=== PATIENT | male | born 1965 | race Caucasian/White ===

== ENCOUNTER 2024-07-08 08:55 | Outpatient (REF) | payer BC, SELFPAY ==
[2024-07-08 09:31] LABS: MANUAL DIFF FLAG NO
[2024-07-08 09:59] LABS: Basophils Percent Auto 0.4 % (0-2); Eosinophils Absolute Auto 0.2 X10*3/uL (0.0-0.4); Eosinophils Percent Auto 2.3 % (0-4); Hematocrit 42.4 % (42.0-52.0); Hemoglobin 14.6 g/dl (14.0-18.0); Imm Gran Abs Auto 0.03 X10*3/uL (0.00-0.03); Imm Gran Pct Auto 0.4 % (0.0-0.4); Lymphocytes Absolute Auto 2.6 X10*3/uL (1.2-4.9); Lymphocytes Percent Auto 36.7 % (20-40); Mean Corpuscular HGB Conc 34.4 g/dl (31.0-36.0); Mean Corpuscular Hemoglobin 31.8 pg (27.0-33.0); Mean Corpuscular Volume 92.4 fL (80.0-98.0); Mean Platelet Volume 8.7 fL (9.4-12.4); Monocytes Absolute Auto 0.6 X10*3/uL (0.1-1.2); Monocytes Percent Auto 8.8 % (2-11); Neutrophils Absolute Auto 3.6 x10*3/uL (2.0-8.3); Neutrophils Percent Auto 51.4 % (45-73); Platelet Count 271 X10*3/uL (160-400); Red Blood Count 4.59 X10*6/uL (4.60-5.80); Red Cell Distribution Width 11.9 % (11.0-16.0); White Blood Count 7.1 X10*3/uL (4.8-10.8)
[2024-07-08 10:05] LABS: Appearance Urine Clear; Color Urine Yellow; Glucose Urine UA Negative (Negative); Leukocyte Esterase Urine Small (1+) (Negative); Nitrite Urine Negative (Negative); Specific Gravity - Urine 1.015 (1.005-1.025); UMIC TRIGGER UACC YES; Urine Blood Large (3+) (Negative); Urine Ketones Negative (Negative); Urine Protein Negative (Neg-Trace)
[2024-07-08 10:18] LABS: Bacteria Urine None Seen (None Seen); Hyaline Casts Urine 0-2 /LPF (0-2); RBC Urine >20 /HPF (0-2); Squamous Epithelial Cell Urine 0-2 /HPF (0-2); UACC Culture Trigger YES; WBC Urine 0-5 /HPF (0-5)
[2024-07-08 10:25] LABS: Estimated Average Glucose 108 mg/dL; Hemoglobin A1C 131.1097 umol/L; Hemoglobin A1c % 5.4 % (<6.0); Total Hemoglobin (HGBA1C) 3657.7992 umol/L
[2024-07-08 10:56] LABS: Alanine Aminotransferase 28 U/L (0-40); Albumin Level 4.6 g/dL (3.5-5.0); Alkaline Phosphatase 78 U/L (39-117); Anion Gap 11 (12-20); Aspartate Amino Transferase 23 U/L (5-37); Bilirubin Total 0.9 mg/dL (0.0-1.0); Blood Urea Nitrogen 15 mg/dL (9-16); Calcium 9.6 mg/dL (8.4-10.2); Carbon Dioxide 28 mmol/L (22-29); Chloride 106 mmol/L (96-108); Cholesterol 135 mg/dL (<200); Estimated Glomerular Filt Rate > 60; Glucose Random 114 mg/dL (60-115); HDL Cholesterol 36 mg/dL (>40); LDL Cholesterol Calculated 85 mg/dL (<100); Potassium 4.3 mmol/L (3.3-5.1); Sodium 141 mmol/L (135-145); Total Protein 7.2 g/dL (6.5-8.0); Triglycerides 74 mg/dL (<150)
[2024-07-08 10:59] LABS: PSA,Total (Free>4and<10) 3.01 ng/mL (0.00-4.00)
[2024-07-08 11:15] LABS: Vitamin D 25-OH Total 48.5 ng/mL (>30)
[2024-07-08 13:01] LABS: Reflex LDLD? No
== END 2024-07-08 08:56 | disposition home or self-care (01) ==
LOC: HO.LAB 08:55
PROVIDERS: PCP Family Medicine; Visit Provider Family Medicine
DX: Z12.5 Encounter for screening for malignant neoplasm of prostate (principal); Z13.1 Encounter for screening for diabetes mellitus; Z00.00 Encounter for general adult medical examination without abnormal findings; R82.90 Unspecified abnormal findings in urine
CPT/HCPCS: 36415; 80053; 80061; 81001; 81003; 82306; 83036; 84153; 84443; 85025; 87086

== ENCOUNTER 2025-08-05 10:25 | Outpatient (REF) | payer BC, SELFPAY ==
--- OUTSIDE RECORDS SUMMARY | 2025-07-31 07:30 | XMS_ITS | Encounter Summary ---
Author Organization [facility] Address [address] [place] [address] Care Team Providers Care Soft Metals Engraver Hand Name Role Phone Kei Hinton MD Primary Care Provider [phone] Reason for Visit * Reason Comments Eye Problem Encounter Details Date Type Department Care Team (Late st Contact Info) Description 07/31/2025 7:30 AM EDT Office Visit [facility] Ophthalmology [address] [place] [phone] Skyler Lopez MD [address] [place] [phone] Presence of intraocular lens Social History Tobacco Use Types Packs/Day Years Used Date Smoking Tobacco: Never Assessed Sex and Gender Information Value Date Recorded Sex Assigned at Male 08/03/2025 9:05 AM EDT Legal Sex Male 4:18 PM EDT Gender Identity Male 08/03/2025 9:05 AM EDT Sexual Orientation Not on file documented as of this encounter Progress Notes * Skyler Lopez MD - 07/31/2025 7:30 AM EDT 07/31/2025 HISTORY: 1 Day post cataract surgery right eye Joshua Jordan Tarun did well overnight. Pain: No Nausea: No Pt states OD was itchy and wiped OD Medications: Antibotics: OFLOXACIN 0.3 % OP SOLN (OCUFLOX) QID x three days before surgery NSAID: FLURBIPROFEN SODIUM 0.03 % OP SOLN (OCUFEN) QID for three days before surgery Ointment: Erythromycin ophthalmic ointment at bedtime x three days before surgery Lids Scrub: Ocusoft x 1 weeks before surgery Exam: IOP: right eye 27 A/C: Cell Trace Cornea: Edema Clear Lens: PCIOL in the bag Fundus: Attached 360 Assessment: Day 1 Status-post cataract extraction right eye. Patient is doing well The pt received detailed instructions regarding postoperative care. The postop instruction sheet was given to the patient and explained which details the timing and frequency of the drops, how they are to be taken, and other information including postop activity limitations and precautions. The wayto blot the eye lightly was demonstrated. Items emphasized include wearing the shield hs x 2 weeks,not rubbing the eye, not lifting/straining which can pop the new lens out of position requiring another surgery to reposition it, RD/infection symptoms. Questions were answered. The pt was encouraged to call immediately, any time, with questions or concerns, including drops. Driving precautions were reviewed. Plan: Medications- Ofloxacin QID and Prednisolone acetate 1% QID, Flurbiprofen QID Cx 1 mo pov Call PRN with problems Call to set up appt with Dr Pro 30+ days documented in this encounter Plan of Treatment Not on file documented as of this encounter Visit Diagnoses Diagnosis Presence of intraocular lens Lens replaced by other means documented in this encounter Care Teams Soft Metals Engraver Hand Relationship Specialty Start Date End Date Kei Hinton MD [facility] [address] [place] [phone] PCP - General Family Medicine 07/31/25 documented as of this encounter
[2025-08-05 10:55] LABS: MANUAL DIFF FLAG NO
[2025-08-05 11:50] LABS: Hematocrit 44.4 % (42.0-52.0); Hemoglobin 15.1 g/dl (14.0-18.0); Imm Gran Abs Auto 0.01 X10*3/uL (0.00-0.03); Imm Gran Pct Auto 0.1 % (0.0-0.4); Lymphocytes Absolute Auto 2.5 X10*3/uL (1.2-4.9); Mean Corpuscular HGB Conc 34.0 g/dl (31.0-36.0); Mean Corpuscular Hemoglobin 31.4 pg (27.0-33.0); Mean Corpuscular Volume 92.3 fL (80.0-98.0); NRBC Abs Auto 0.000 X10*3/uL (0.0-0.012); NRBC Pct Auto 0.0 /100WBC (0.0-0.2); Platelet Count 300 X10*3/uL (160-400); Red Blood Count 4.81 X10*6/uL (4.60-5.80); White Blood Count 6.7 X10*3/uL (4.8-10.8)
[2025-08-05 12:23] LABS: Appearance Urine Clear; Glucose Urine UA Negative (Negative); PH 6.5 (5.0-9.0); Specific Gravity - Urine 1.015 (1.005-1.025)
[2025-08-05 12:30] LABS: Alanine Aminotransferase 34 U/L (0-40); Albumin Level 4.9 g/dL (3.5-5.0); Alkaline Phosphatase 84 U/L (39-117); Anion Gap 12 (12-20); Aspartate Amino Transferase 29 U/L (5-37); Blood Urea Nitrogen 16 mg/dL (9-16); Calcium 9.3 mg/dL (8.4-10.2); Carbon Dioxide 27 mmol/L (22-29); Chloride 104 mmol/L (96-108); Cholesterol 199 mg/dL (<200); Estimated Glomerular Filt Rate > 60; HDL Cholesterol 37 mg/dL (>40); Potassium 4.1 mmol/L (3.3-5.1); Sodium 139 mmol/L (135-145); Total Protein 7.3 g/dL (6.5-8.0); Triglycerides 80 mg/dL (<150)
[2025-08-05 12:43] LABS: PSA,Total (Free>4and<10) 2.96 ng/mL (0.00-4.00)
[2025-08-05 12:55] LABS: Thyroid Stimulating Hormone 0.99 uIU/mL (0.32-4.0)
--- OUTSIDE RECORDS SUMMARY | 2025-08-05 12:56 | XMS_ITS | Encounter Summary ---
Author Organization [facility] Address [address] [place] [address] Care Team Providers Care Claims Examiner Name Role Phone Kei Hinton MD Primary Care Provider [phone] Reason for Visit * Reason Comments Appointment Cataract Surgery Encounter Details Date Type Department Care Team (Late st Contact Info) Description 06/10/2025 Telephone [facility]. Ophthalmology [address] [place] [phone] Skyler Lopez MD [address] [place] [phone] Appointment ; Cataract Surgery Social History Tobacco Use Types Packs/Day Years Used Date Smoking Tobacco: Never Assessed Sex and Gender Information Value Date Recorded Sex Assigned at Male 08/03/2025 9:05 AM EDT Legal Sex Male 4:18 PM EDT Gender Identity Male 08/03/2025 9:05 AM EDT Sexual Orientation Not on file documented as of this encounter Miscellaneous Notes * Telephone Encounter - Colt Tapia - 06/10/2025 3:12 PM EDT He is all set with a date. Fany Tapia COA * Telephone Encounter - Roni Myers - 06/10/2025 12:46 PM EDT The patient want to schedule CAT surgery with Dr Lopez please call back to [phone] to assists. [facility] documented in this encounter Plan of Treatment Not on file documented as of this encounter Visit Diagnoses Not on filedocumented in this encounter Care Teams Claims Examiner Relationship Specialty Start Date End Date Kei Hinton MD [facility] [address] [place] [phone] PCP - General Family Medicine 07/31/25 documented as of this encounter
--- OUTSIDE RECORDS SUMMARY | 2025-08-05 12:56 | XMS_ITS | Encounter Summary ---
Author Organization [facility] Address [address] [place] [address] Care Team Providers Care Technical Education Teacher Name Role Phone Kei Hinton MD Primary Care Provider [phone] Encounter Details Date Type Department Care Team (Late st Contact Info) Description 07/11/2024 Orders Only [facility] Xray [address] [place] [address] Darin Tee MD [address] [place] [address] Social History Tobacco Use Types Packs/Day Years Used Date Smoking Tobacco: Former Smokeless Tobacco: Never Comments::QUIT 1989 Alcohol Use Standard Drinks/Week Comments Yes 0 (1 standard drink = 0.6 oz pur e alcohol) [facility] Utilities Answer Date Recorded In the past 12 months has th e electric, gas, oil, or water company threatened to shut off services in your home? No 07/10/2024 Hunger Vital Sign Answer Date Recorded Within the past 12 months, y ou worried that your food would run out before you got the money to buy more. Never true 07/10/20 24 Within the past 12 months, t he food you bought just didn't last and you didn't have money to get more. Never true 07/10/2024 Transportation Answer Date Recorded In the past 12 months, has l ack of reliable transportation kept you from medical appointments, meetings, work or from getting things needed for daily living? No 07/10/2024 Housing Answer Date Recorded Housing Risk Low 2 07/10/2024 Housing Risk Medium Not on file 07/10/2024 Housing Risk High Not on file 07/10/2024 What is your living situation today? [facility]STEAD[facility] 07/10/2024 Sex and Gender Information Value Date Recorded Sex Assigned at Male 11/02/2023 1:08 PM EST Legal Sex Male 5:30 AM EDT Gender Identity Male 11/02/2023 1:08 PM EST Sexual Orientation Straight 11/02/2023 1: 08 PM EST documented as of this encounter Plan of Treatment Upcoming Encounters Date Type Department Care Team (Late st Contact Info) Description 08/07/2025 9:30 AM EDT Office Visit [facility] 100 [facility] Department 100 [facility] [address] [place] [phone] Kei Hinton MD [address] [place] [address] 05/03/2026 4:00 PM EDT Follow-Up [facility] Medical [facility] Urology [address] [place] [phone] Enrrique Cuevas MD [address] [place] [phone] documented as of this encounter Visit Diagnoses Not on filedocumented in this encounter Care Teams Technical Education Teacher Relationship Specialty Start Date End Date Kei Hinton MD [address] [place] [phone] PCP - General Family Medicine 07/31/23 documented as of this encounter
--- OUTSIDE RECORDS SUMMARY | 2025-08-05 12:56 | XMS_ITS | Encounter Summary ---
Author Organization [facility] Address [address] [place] [address] Care Team Providers Care Business Practices Supervisor Name Role Phone Kei Hinton MD Primary Care Provider [phone] Encounter Details Date Type Department Care Team (Late st Contact Info) Description 04/02/2025 Orders Only [facility] Interventional Radiology [address] [place], [place] [phone] Lamont Andrews DO 55 [facility] Internal Medicine [place], [place] [phone] Social History Tobacco Use Types Packs/Day Years Used Date Smoking Tobacco: Former Smokeless Tobacco: Never Comments::QUIT 1989 Alcohol Use Standard Drinks/Week Comments Yes 0 (1 standard drink = 0.6 oz pur e alcohol) [facility] Utilities Answer Date Recorded In the past 12 months has th e electric, gas, oil, or water company threatened to shut off services in your home? No 02/01/2025 Hunger Vital Sign Answer Date Recorded Within the past 12 months, y ou worried that your food would run out before you got the money to buy more. Never true 02/02/20 25 Within the past 12 months, t he food you bought just didn't last and you didn't have money to get more. Never true 02/01/2025 Transportation Answer Date Recorded In the past 12 months, has l ack of reliable transportation kept you from medical appointments, meetings, work or from getting things needed for daily living? No 02/01/2025 Housing Answer Date Recorded Housing Risk Low 2 02/01/2025 Housing Risk Medium Not on file 02/01/2025 Housing Risk High Not on file 02/01/2025 What is your living situation today? LSSTEADY 02/01/2025 Sex and Gender Information Value Date Recorded Sex Assigned at Male 11/02/2023 1:08 PM EST Legal Sex Male 5:30 AM EDT Gender Identity Male 11/02/2023 1:08 PM EST Sexual Orientation Straight 11/02/2023 1: 08 PM EST documented as of this encounter Plan of Treatment Upcoming Encounters Date Type Department Care Team (Late st Contact Info) Description 08/07/2025 9:30 AM EDT Office Visit [facility] 100 [facility] Department [address] [place] [phone] Kei Hinton MD [address] [place] [address] 05/03/2026 4:00 PM EDT Follow-Up [facility] Medical [facility] Urology [address] [place] [phone] Enrrique Cuevas MD [address] [place] [phone] documented as of this encounter Visit Diagnoses Not on filedocumented in this encounter Care Teams Business Practices Supervisor Relationship Specialty Start Date End Date Kei Hinton MD [address] [place] [phone] PCP - General Family Medicine 07/31/23 documented as of this encounter
--- OUTSIDE RECORDS SUMMARY | 2025-08-05 12:56 | XMS_ITS | Clinical Summary ---
Author Organization [facility] Address [address] [place] [address] Care Team Providers Care Vegetable Washing Machine Operator Name Role Phone Kei Hinton MD Primary Care Provider [phone] Allergies Active Allergy Reactions Criticality Noted Date Comments No Known Allergies Unknown 06/28/2023 Medications atorvastatin (LIPITOR) 40 mg tablet Take 1 tablet (40 mg total) by mouth at bed time. 90 tablet 3 09/20/2023 Active tamsulosin (FLOMAX) 0.4 mg capsule Take 1 capsule (0.4 mg total) by mouth once a day. 90 capsule 1 08/08/2024 Active Active Problems Problem Noted Date Diagnosed Date Screening due 02/06/2025 Recurrent pain of right knee 02/06/2025 History of hematuria 08/05/2024 Assessment & Plan (08/05/2024 2:02 PM EDT): Repeat urine test was normal without hematuria and CT urogram were normal. Urology referral pending. Hematuria 07/10/2024 BPH (benign prostatic hyperplasia) 07/30/2023 Assessment & Plan (08/05/2024 2:02 PM EDT): Well-controlled on tamsulosin. Overweight (BMI 25.0-29.9) 07/30/2023 Assessment & Plan (08/05/2024 2:02 PM EDT): Weight loss advised. 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 Patient will continue current regiment. Resolved Problems Problem Noted Date Diagnosed Date Resolved Date Closed chip fracture of triq uetral bone of right wrist 07/30/2023 07/30/2023 Abnormal LFTs 07/30/2023 07/30/2023 Immunizations Immunization Administration Dates Next Due Covid-19 Monovalent Vaccine, Moderna, mRNA, PF 0 02/14/2021,01/17/2021 Diphtheria and Tetanus Toxoi ds, Adsorbed for Pediatric Use 11/12/1991 Influenza, Injectable, Madin Bambi Canine Kidney, Preservative Free, Quadrivalent 08/29/2023 Measles Virus Vaccine 08/09/1990 Tetanus Toxoid, Reduced Diph theria Toxoid, and Acellular Pertussis Vaccine, Adsorbed 07/31/2023 Varicella Virus Vaccine 09/12/2023,08/13/2023 Social History Tobacco Use Types Packs/Day Years Used Date Smoking Tobacco: Former Smokeless Tobacco: Never Tobacco Cessation:Counseling Given: Not Answered Comments::QUIT 1989 Alcohol Use Standard Drinks/Week Comments Yes 0 (1 standard drink = 0.6 oz pur e alcohol) [facility] Utilities Answer Date Recorded In the past 12 months has e electric, gas, oil, or water PAK threatened to shut off services in your [...] Orientation Straight 11/02/2023 1: 08 PM EST Last Filed Vital Signs Vital Sign Reading Time Taken Comments Blood Pressure 122/73 02/06/2025 2:04 PM EDT Pulse 61 02/06/2025 2:04 PM EDT Temperature 36.3 C (97.3 F) 02/06/2025 2:04 PM EDT Respiratory Rate - - Oxygen Saturation 96% 02/06/2025 2:04 PM EDT Inhaled Oxygen Concentration - - Weight 88.9 kg (196 lb) 02/06/2025 2:04 PM EDT Height 177.8 cm (5' 10 ) 02/06/2025 2:04 PM EDT Body Mass Index 28.12 02/06/2025 2:04 PM EDT Plan of Treatment Upcoming Encounters Date Type Department Care Team (Late st Contact Info) Description 08/07/2025 9:30 AM EDT Office Visit [address] Department 100 [facility] [address] [place] [phone] Kei Hinton MD [address] [place] [phone] 05/03/2026 4:00 PM EDT Follow-Up [facility] Urology [address] [place] [phone] Enrrique Cuevas MD [address] [place] [phone] Health Maintenance Due Date Last Done Comments FOBT / Fit Test 1965 HIV Screening 1965 Hepatitis C Screening [address] Lung Cancer Screening (Baseline) 2014 Pneumococcal Vaccine: 50+ Years (1 of 1 - PCV) 2014 Zoster Vaccines (1 of 2) 11/07/2023 09/12/2023, 11/0 03/2023 COVID-19 Vaccine (3 - season) 2025 02/14/2021, 01/17/2021 Influenza Vaccine (#1) 2025 08/29/2023 Social Drivers of Health Annual Screening 02/01/2026 02/01/2025 Diabetes Screening 07/03/2026 07/03/2023, 0 07/03/2023, 07/03/2023, Additional history exists Depression Screening and Follow-Up 08/05/2026 08/05/2025 Cologuard 11/07/2027 11/07/2024, 11/07/2024 Colon Cancer Screening 03/06/2028 Colonoscopy 03/06/2028 03/06/2018, 03/06/2018 DTaP,Tdap,and Td Vaccines (3 - Td or Tdap) 07/31/2033 07/31/2023, 11/12/1991 RSV Vaccine (60+ years old and patients) (1 - 1-dose 75+ series) 2039 Alcohol/Substance Use Screening Completed 08/05/2025 Hepatitis B Vaccines Aged Out No long er eligible based on patient's age to complete this topic Procedures * Due to [place] [employer] law, this organization might not be sharing negative HIV tests. Procedure Name Priority Date/Time Associated Diagnosis Comments HEMOGLOBIN A1C Routine 07/03/2023 8:37 AM EDT HM COLONOSCOPY Routine 03/06/2018 from Last 3 Months or Most Recently Relevant to Health Maintenance Results * Due to [place] [employer] law, this organization might not be sharing negative HIV tests. * (ABNORMAL) Hemoglobin A1c (07/03/2023 8:37 AM EDT) Hemoglobin A1c 5.8(H) 4.0 - 5.7 % CONVERSION DATA LAB Comment: Hemoglobin A1c Interpretation Normal Range: less than 5.7% Diabetes: Greater than of equal to 6.5% PreDiabetic: 5.7 to 6.4% Estimated Average Glucose 120 mg/dL CONVERSION DATA LAB Comment: COMMENT: HgbA1c testing is not valid for patients with: 1) Decreased red blood cell life span (hemoglobinopathies, hemolytic anemia). 2) Significant blood loss. 3) Anemia secondary to nutrional deficiency. 4) Blood transfusions within the past 2-3 months. An alternate test method should be used for these patients. 07/03/2023 8:37 AM EDT us Kei Hinton MD LAB BLOOD ORDERABLES Final Re sult CONVERSION DATA LAB * Colonoscopy (03/06/2018) 03/06/2018 us Unknown Provider HEALTH MAINTENANCE Final Res ult from Last 3 Months or Most Recently Relevant to Health Maintenance Insurance BCBS OUT OF STATE PPO Advance Directives Documents on File Type Date Recorded Patient Manager Health Expl anation Health Care Proxy 08/02/2023 9:04 PM 06-2 Health Care Proxy 07/31/2023 10:31 AM Health Care Proxy 06/22/2022 Health Care Proxy 06/22/2022 Health Care Proxy 06/22/2022 Advance Directive 06/19/2022 5:29 PM Care Teams Vegetable Washing Machine Operator Relationship Specialty Start Date End Date Kei Hinton MD [address] [place] [phone] PCP - General Family Medicine 07/31/23
--- OUTSIDE RECORDS SUMMARY | 2025-08-05 12:56 | XMS_ITS | Clinical Summary ---
Author Organization [facility] Address [address] [place] [address] Care Team Providers Care Coating Machine Feeder Name Role Phone Kei Hinton MD Primary Care Provider [phone] Allergies No known active allergies Medications * This document contains information received from the source organization and may not represent a complete record from that organization. Tamsulosin HCl (FLOMAX) 0.4 MG Cap Take 0.4 mg by mouth in the morning and at bedtime. 4 Active Multiple Vitamins-Minera ls (MULTIVITAMIN ADULTS OR) Take 1 tablet by mouth 1 (one) time each day. Active Flurbiprofen Sodium (OCUFEN) 0.03 % ophthalmic solution 1 drop to surgical eye four times a day starting three days before surgery and for 4 weeks after surgery.. 7.5 mL 1 5 Active Erythromycin (ROMYCIN) ophthalmic ointment Apply a small amount into surgical eye at bedtime starting three days before surgery.. 3.5 g 1 5 Active OFLOXACIN, OPHTH, (OCUFLOX) 0.3 % ophthalmic solution 1 drop to surgical eye four times a day starting three days before surgery, and four times a day for 2 weeks after surgery.. 10 mL 1 5 Active prednisoLONE Acetate (PRED FORTE) 1 % ophthalmic suspension 1 drop to surgical eye four times a day AFTER surgery x1 week, then 3x a day x1 week, 2x a day x1 week, 1x a day x1 week then stop.. 10 mL 1 5 Active Brimonidine Tartrate (ALPHAGAN) 0.2 % ophthalmic solution Administer one drop into the right eye 3 (three) times a day for 7 days. 5 mL 09/06/20 25 Active Encounters Date Type Department Care Team Description 07/31/2025 7:30 AM EDT Office Visit [facility] Ophthalmology [address] [place] [phone] Skyler Lopez MD Presence of intraocular lens 07/30/2025 2:00 PM EDT Surgery/Major Procedure [facility] [address] [place] [phone] Skyler Lopez MD Nuclear senile cataract of right eye 06/29/2025 Minor Procedure/Test NON FC SA NON FC UNK Provider, Unknown 06/10/2025 Telephone [facility] Ophthalmology [address] [place] [phone] Skyler Lopez MD Appointment ; Cataract Surgery 06/05/2025 9:30 AM EDT Consult (Initial) [facility] Ophthalmology [address] [place] [phone] Skyler Lopez MD Dermatochalasis of both upper eyelids; Dry eyes, bilateral from Last 3 Months Social History Tobacco Use Types Packs/Day Years Used Date Smoking Tobacco: Never Assessed Sex and Gender Information Value Date Recorded Sex Assigned at Male 08/03/2025 9:05 AM EDT Legal Sex Male 4:18 PM EDT Gender Identity Male 08/03/2025 9:05 AM EDT Sexual Orientation Not on file Plan of Treatment Health Maintenance Due Date Last Done Comments Hepatitis C Screening 1965 DTaP/Tdap/Td (1 - Tdap) 1982 Pneumococcal 50+ years (1 of 1 - PCV) 2014 Zoster (Shingrix) (1 of 2) 2014 COVID-19 Vaccine (3 - 2024-2 6 season) 2025 02/14/2021, 01/17/2021 Influenza (#1) 2025 08/29/2023 Colon Cancer Screening 11/24/2027 11/24/2024 RSV (1 - 1-dose 75+ series) 2039 Cologuard Dates Discontinued 11/07/2024 Eye/Retina Exam Discontinued 06/05/2025, 04/18/2025 Tonometry Discontinued 06/05/2025, 04/18/2025 HPV Vaccine (No Doses Required) Completed Hep A Aged Out No longer eligi ble based on patient's age to complete this topic Hep B Aged Out No longer eligi ble based on patient's age to complete this topic Hib Aged Out No longer eligi ble based on patient's age to complete this topic Meningococcal ACWY Aged Out No longer eligible based on patient's age to complete this topic Zoster (Zostavax) Discontinued Procedures * Due to [place] [employer] law, this organization might not be sharing negative HIV tests. Procedure Name Priority Date/Time Associated Diagnosis Comments EXTRACAPSULAR CATARACT REMOVAL W/ INSERTION LENS PROSTHESIS W/O ENDOSCOPIC CYCLOPHOTOCOAG, REGULAR Routine 07/30/2025 9:32 AM EDT Nuclear senile cataract of right eye OPHTHALMOLOGICAL TEST/PROCEDURE, UNSPECIFIED 06/29/2025 OPHTHALMOLOGICAL TEST/PROCEDURE, UNSPECIFIED 06/05/2025 OPHTHALMOLOGICAL TEST/PROCEDURE, UNSPECIFIED 06/05/2025 COMPREHENSIVE EYE EXAM 04/18/2025 from Last 3 Months or Most Recently Relevant to Health Maintenance Results * Due to [place] [employer] law, this organization might not be sharing negative HIV tests. * OPHTHALMOLOGICAL TEST/PROCEDURE, UNSPECIFIED (06/29/2025) Narrative 06/29/2025 Ordered by an unspecified provider. us Unknown Provider PROCEDURES Final Result * OPHTHALMOLOGICAL TEST/PROCEDURE, UNSPECIFIED (06/05/2025) us Skyler Lopez MD PROCEDURES Final Result * OPHTHALMOLOGICAL TEST/PROCEDURE, UNSPECIFIED (06/05/2025) us Skyler Lopez MD PROCEDURES Final Result * COMPREHENSIVE EYE EXAM (04/18/2025) us Lenny Pro OD MINOR PROCEDURE Final Result from Last 3 Months or Most Recently Relevant to Health Maintenance Insurance [place] FEE FOR SERVICE PPO [employer] FEE FOR SERVICE PPO * Guarantor: [email or web address] Account Type Relation to Patient Date of Phone Billing Address [employer] [facility] [address] [place] [address] Care Teams Coating Machine Feeder Relationship Specialty Start Date End Date Kei Hinton MD [facility] [address] [place] [address] [address] [place] [address] PCP - General Family Medicine 07/31/25
[2025-08-05 13:48] LABS: Reflex LDLD? No
[2025-08-06 04:29] LABS: HIV Num 1 0.06 S/CO (0.00-0.99); ~HepC Num1 0.14 S/CO (0.00-0.79); ~Hepatitis C Antibody Nonreactive (Nonreactive)
== END 2025-08-05 10:26 | disposition home or self-care (01) ==
LOC: HO.LAB 10:25
PROVIDERS: PCP Family Medicine; Visit Provider Family Medicine
DX: Z00.00 Encounter for general adult medical examination without abnormal findings (principal); Z13.89 Encounter for screening for other disorder; Z11.59 Encounter for screening for other viral diseases; Z11.4 Encounter for screening for human immunodeficiency virus [HIV]; R31.9 Hematuria, unspecified; Z13.6 Encounter for screening for cardiovascular disorders; Z12.5 Encounter for screening for malignant neoplasm of prostate; Z13.1 Encounter for screening for diabetes mellitus; Z13.29 Encounter for screening for other suspected endocrine disorder; Z13.21 Encounter for screening for nutritional disorder
CPT/HCPCS: 36415; 80053; 80061; 81003; 82306; 83036; 84153; 84443; 85025; 86803; 87389